=== PATIENT | male | born 1940 | race Caucasian/White ===

== ENCOUNTER 2023-12-04 08:10 | Outpatient (RCR) | payer MEDICARE, SELFPAY | END 2023-12-19 15:48 | disposition home or self-care (01) | LOC: PT 08:10 | PROVIDERS: PCP Internal Medicine; Visit Provider Internal Medicine | DX: M48.061 Spinal stenosis, lumbar region without neurogenic claudication (principal); M25.552 Pain in left hip; M25.551 Pain in right hip | CPT/HCPCS: 97110; 97140; 97161 ==